=== PATIENT | male | born 1960 | race Caucasian/White ===

== ENCOUNTER 2024-04-14 09:43 | Emergency (ER) | payer OTHER, SELFPAY ==
[2024-04-14 09:43] VITALS: BP 120/75; PULSE 63; RESP 14; TEMP 36.2; O2SAT 98
[2024-04-14 09:56] VITALS: BMI 23.6
--- NOTE | 2024-04-14 10:40 | RAD_ITS ---
STUDY: X-RAY - RIGHT KNEE REASON FOR EXAM: Male, 63 years old. Right knee pain following a fall. TECHNIQUE: 4 view(s) of the knee. COMPARISON: None. FINDINGS: Normal visualized distal femur. Normal visualized proximal tibia and fibula. Normal proximal tibiofibular articulation. Normal medial femorotibial compartment. Normal lateral femorotibial compartment. Normal patellofemoral articulation. The soft tissue structures are unremarkable. RAD/Knee 4 or More Views IMPRESSION: Normal x-ray examination of the knee. Electronically Signed: Harvey Cervantes MD at 10:51 EDT ,
[2024-04-14 11:43] VITALS: BP 120/70; PULSE 80; RESP 16; O2SAT 99
--- NOTE | 2024-04-14 11:51 | ED.VIS.LOWEX ---
HPI History of Present Illness Chief Complaint: Lower Extremity Injury Informant: patient Narrative Narrative: Patient is a 63-year-old male denies any significant past medical history presenting with right knee pain after a fall. Patient was walking a flight of stairs when he got to the bottom step he stumbled and fell forward. Patient states he landed on his right side. He felt a pop in his right knee and had immediate pain. He now feels that something in his knee is out of place. He notes when he sits with his legs straight the pain is not too bad but when he tries to move his knee he has increased pain. Denies associate numbness or tingling. Did not hit his head. Denies any other injuries. Is not on any blood thinners. [place] and here on work. [facility] Medical History Appendicitis Forearm fracture Home Medications ?Medication ?Instructions ?Recorded ?Last Taken ?Type hydrocodone-acetaminophen 5-325mg 1 tab PO Q6H PRN PRN Pain 3 days 04/14/24 Unknown Rx 5mg-325mg #12 TABLETS Allergy/AdvReac Type Severity Reaction Status Date / Time No Known Allergies Allergy Verified 04/14/24 09:45 Surgical History H/O hernia repair Social History Smoking Status: Never smoker ROS ROS ED Eyes Eyes: Denies change in vision Gastrointestinal Gastrointestinal: Denies nausea Musculoskeletal Musculoskeletal: Reports other Details: Right knee pain Integumentary Denies Abrasions Neurologic Neurologic: Denies headache(s), paresthesias or weakness Hematologic/Lymphatic Hematologic/Lymphatic: Denies easy bleeding or easy bruising EXAM Physical Exam Const Vital Signs: 04/14/24 09:43 04/14/24 11:43 Temperature 97.2 F L Temperature Source Temporal Pulse Rate 63 80 Respiratory Rate 14 16 Blood Pressure 120/75 120/70 Blood Pressure Mean 90 86 Pulse Ox 98 99 Oxygen Delivery Method Room Air Room Air Positive well nourished and well developed General Appearance ED: well developed and NAD HEENT normocephalic and atraumatic Neck full ROM Chest Wall inspection of chest normal Resp normal respiratory effort and clear to auscultation bilaterally Cardio regular rate and regular rhythm Cardio Narrative: 2+ DP pulses Extremity Extremity Narrative: No obvious deformity of the extremities. No pinpoint bony tenderness to palpation. Pain is localized over the distal femur/just above the patella. Patient is unable to flex straighten leg and when he attempts to a divot becomes apparent proximal to the right patella which is consistent with at least a partial quadricep tendon rupture. There is a mild joint effusion present. Patella does appear to be in appropriate position. No tenderness palpation along the tibial plateau. Compartments are soft of the leg and lower leg. Neuro oriented x3 Sensorium / Orientation: alert Motor Exam: Negative for general weakness Psych mental status grossly normal Skin no wounds MDM MDM MDM Narrative Medical decision making narrative: Patient is evaluated for right knee injury after mechanical fall. Differential includes quadricep tendon injury, course of tendon rupture, patellar dislocation, patella fracture and knee sprain. Given his physical exam I am highly concerned for quadricep tendon injury. Patient is declining pain medication at this time. He is hemodynamically stable and neurovascularly intact. X-ray does not show any acute fracture but does show what appears to be a slight avulsion fracture/polyp of the distal femur on the lateral view on my interpretation. Patient be placed in a knee immobilizer and instructed to follow-up with orthopedics for suspected course of tendon injury/partial rupture. Patient will be given crutches and nonweightbearing status instructions. Given a prescription for pain medication. Workmen's Compensation paperwork is filed. Radiography Diagnostic Testing: Clinical Impression(s) from Imaging Studies Knee X-Ray 04/14/24 10:40 IMPRESSION: Normal x-ray examination of the knee. Electronically Signed: Harvey Cervantes MD at 10:51 EDT , ADDENDUM: 04/14/24 1209 IMPRESSION: undefined Discharge Plan Triage Chief Complaint: Lower Extremity Injury ED Provider: Varsha Avila Dx/Rx/DC Orders Clinical Impression: Injury of quadriceps tendon, Acute pain of right knee Instructions: Using Crutches: Cah-[id number]-Joqyavr, ED Knee Immobilizer, ED Quadriceps Tendon Rupture Prescriptions: New hydrocodone-acetaminophen 5-325 mg tablet 1 tab PO Q6H PRN PRN (Reason: Pain) 3 Days Qty: 12 0RF Primary Care Provider: SADIQ VILLASEÑOR Referrals: SADIQ VILLASEÑOR [Other] Activity Restrictions/Additional Instructions: You have an injury to your quadricep tendon based on your physical exam and I am concerned you have a rupture versus a partial rupture. Do not put weight on your right leg and wear the knee immobilizer at all times except with showering/changing clothes. Please follow-up as soon as possible with orthopedics back home. Print Language: Bulgarian Disposition Disposition: Home, Self Care Discharge Date/Time: 04/14/24 13:11
== END 2024-04-14 13:11 | disposition home or self-care (01) ==
PROVIDERS: Emergency Provider Emergency Medicine; Visit Provider Emergency Medicine
DX: M25.561 Pain in right knee (principal); S76.109A Unspecified injury of unspecified quadriceps muscle, fascia and tendon, initial encounter; W10.9XXA Fall (on) (from) unspecified stairs and steps, initial encounter; W17.89XA Other fall from one level to another, initial encounter
CPT/HCPCS: 73564; 99284